=== PATIENT | female | born 1955 | race Caucasian/White ===

== ENCOUNTER → 2016-07-11 | Outpatient (CLI) | payer OTHER ==
[~2016-07-11] MED LIST: ASPIRIN 81MG TA81 MG PO; AVONEX30 MCG/0.5; CELEXA 20MG TAB20 MG PO; CYMBALTA60 M1; CYMBALTA60 MG PO; GRALISE300 MG PO; JINTELI 5 MCG-11 TAB; JINTELI 5 MCG-11 TAB PO; K-DUR20 MEQ PO; LEVAQUIN500 MG PO; LISINOP/HCTZ TAB 20-; LISINOPRIL AND1 TAB PO; LOMOTIL 2.5MG.2.5 MG PO; MODAFINIL100 MG; PRILOSEC40 MG PO; PROVIGIL100 MG PO; SEPTRA DS 800 M1 TAB PO; TECFIDERA240 MG PO
[2016-07-11 08:57] LABS: HEMOGLOBIN 13.7 g/dL (12.2-16.2); LYMPH # 0.7 K/mm3 (0.7-4.5); LYMPH % 15.4 % (10-50.0)
[2016-07-11 10:49] LABS: BUN 13 mg/dL (7-18)
[2016-07-11 10:50] LABS: GFR (ESTIMATED) 73 ML/MIN (59-)
== END ==
LOC: LAB 08:45
PROVIDERS: Nurse Practitioner Obstetrics & Gynecology
DX: Z01.419 Encounter for gynecological examination (general) (routine) without abnormal findings (principal)